=== PATIENT | female | born 1995 | race Two or more races ===

== ENCOUNTER 2019-09-12 18:24 | Emergency (ER) | payer OTHER ==
[~2019-09-12] VITALS: Ht 154.9 cm; Wt 52.0 kg
[2019-09-12 18:27] VITALS: BP 129/75
--- NOTE | 2019-09-12 18:58 | NUR ---
IN MRI AT THIS TIME
--- NOTE | 2019-09-12 20:51 | NUR ---
Patient given discharge instructions and they have confirmed that they understand the instructions. Patient ambulatory with steady gait.
== END 2019-09-12 20:53 | disposition home or self-care (01) ==
LOC: ED 19:24
DX: S00.03XA Contusion of scalp, initial encounter (principal); V19.9XXA Pedal cyclist (driver) (passenger) injured in unspecified traffic accident, initial encounter; Y93.89 Activity, other specified; Y92.89 Other specified places as the place of occurrence of the external cause; Y99.8 Other external cause status
CPT/HCPCS: 70553; 99285